=== PATIENT | male | born 1990 | race Caucasian/White ===

== ENCOUNTER → 2019-04-15 | Outpatient (CLI) | payer BC ==
--- NOTE | 2019-04-15 20:41 | CONS ---
CONSULTATION DATE OF SERVICE: 04/15/2019 28-year-old gentleman who has been evaluated in the sleep center for possible obstructive sleep apnea-hypopnea syndrome. HISTORY OF PRESENT ILLNESS/SLEEP WAKE EVALUATION: Patient usual sleep schedule from 11 or 12 midnight until 7 or 8:00 am, 7 days a week. Sometimes he has problem with falling asleep. He has TV set in bedroom. He sleeps in different positions, including back, side and stomach. According to his , he has extremely loud snoring with witnessed episodes of stopped breathing during the sleep. The patient wakes up from sleep with dry mouth up to 15 times. In the morning, he wakes up tired, feels sleepiness during the day. [place] Sleepiness Scale significantly increased to 10. During the night, patient may have twitching of his legs. PAST MEDICAL HISTORY: Basically negative. SOCIAL HISTORY: Negative for smoking. Alcohol consumption occasional. MEDICATIONS: None at the present time. 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 FAMILY HISTORY: Hypertension, heart problems, thyroid problems, restless legs. REVIEW OF SYSTEMS: Multiple awakenings from sleep, loud snoring, witnessed episodes of stopped breathing, sleepiness during the day. PHYSICAL EXAM: gentleman without distress. BP 136/85, HR 84, RR 16, height 5 feet 11 inches, weight 205 pounds. Body mass index 28.5, temperature 98.2, oxygen saturation at room air 96%. Oropharynx practically normal position of soft palate vertically, Mallampati 2 but horizontally very close position of soft palate and posterior pharyngeal wall. Neck Supple, no JVD. Thyroid is not palpable. LUNGS Clear to percussion and to auscultation. Good air exchange. No wheezing or rhonchi. HEART S1, S2 regular. No murmurs, gallops, or rubs. ABDOMEN Soft and nontender. Bowel sounds are present. No organomegaly appreciated. EXTREMITIES No clubbing or cyanosis. MARKETING AREA MANAGER Awake, alert, and oriented X3. Cranial nerves 2 to 7 intact. There is no fasciculation or atrophy. noted. No focal deficits observed. IMPRESSION: 1. Loud snoring, witnessed episodes of stopped breathing during the sleep multiple awakenings from sleep sleepiness, obstructive sleep apnea-hypopnea syndrome. 2. Status post tonsillectomy and adenoidectomy in childhood, also for snoring and possible sleep apnea at that time. 3. Twitching legs during the night. Possible periodic limb movements. PLAN: 1. Home sleep apnea test for evaluation of patient breathing during the sleep. 1. CPAP/BiPAP titration if sleep study confirms obstructive sleep apnea-hypopnea syndrome. 2. Preferable position during sleep on the side. 3. No driving if patient feels any sleepiness. 4. I will see patient for follow up visit to explain results of testing and following plan. Thank you for allowing me to participate in the care of your patient. Sincerely, Carl Roman MD, PhD, FAASM Diplomat of [employer] [employer] Agency Recruiter of [facility] [place] MMODL / IJN: [id number] /
== END | disposition home or self-care (01) ==
LOC: SLEEP 15:01
PROVIDERS: ATTEND Internal Medicine
DX: G47.33 Obstructive sleep apnea (adult) (pediatric) (principal); R25.3 Fasciculation; Z90.09 Acquired absence of other part of head and neck
CPT/HCPCS: 99211

== ENCOUNTER → 2020-08-11 | Outpatient (CLI) | payer BC ==
--- NOTE | 2020-08-11 20:53 | SFUN ---
SLEEP CENTER FOLLOW UP NOTE DATE OF SERVICE: 08/11/2020 This 30-year-old gentleman has been followed in the sleep enter for treatment of obstructive sleep apnea-hypopnea syndrome. In March of 2019 he had a home sleep apnea test which showed that he has obstructive sleep apnea in mild range. The patient was started on treatment with CPAP but was not able to use the equipment for different reasons, and the CPAP equipment has been returned. At present he again has problems related to sleep apnea, including snoring, multiple awakenings from sleep, episodes of stopped breathing. [place] Sleepiness Scale today is 4. He does not take any medications. PHYSICAL EXAMINATION: GENERAL: A pleasant patient in no distress. VITAL SIGNS: BP 105/71, HR 88, RR 15, height 5 feet 11 inches, weight 214, BMI 29.8, temperature 98.4, oxygen saturation at room air 96%. HEENT: PERRLA, EOMI. Evaluation of oropharynx showed tongue protrudes midline. Close position of soft palate to posterior pharyngeal wall, but vertically position of soft palate is Mallampati II. NECK: Supple. No JVD. Thyroid is not palpable. LUNGS: Clear to percussion and to auscultation. Good air exchange. No wheezing or rhonchi. HEART: S1, S2 regular. No murmurs, gallops or rubs. ABDOMEN: Soft, nontender. No organomegaly. Bowel sounds are heard in all four quadrants. EXTREMITIES: No clubbing or cyanosis. CHEMICAL PLANT TECHNICAL DIRECTOR: Awake, alert, and oriented X3. Cranial nerves 2 to 7 intact. There is no fasciculation or atrophy. noted. No focal deficits observed. IMPRESSION: 1. Loud snoring, witnessed episodes of stopped breathing during sleep, multiple awakenings from sleep, positive results of home sleep apnea test for obstructive sleep apnea in mild range more than one year ago. 2. Status post tonsillectomy and adenoidectomy in childhood. 3. History of twitching legs during the night; possibly periodic limb movements. 4. Decision made to repeat home sleep apnea test. PLAN: 1. Home sleep apnea test for re-evaluation of patient's breathing during sleep at the present time. 2. Sleep hygiene with regular time in bed for at least 7-1/2 hours. 3. Precautions related to driving. No driving if feeling any sleepiness. 4. Following plan after reviewing the results of home sleep apnea test. Thank you very much for allowing me to participate in the management of your patient. Sincerely, Carl Roman MD, PhD, FAASM Diplomat of [employer] Gold Frame Assembler of [facility] [place] SID / CAITLIN: [id number] /
== END | disposition home or self-care (01) ==
LOC: SLEEP 15:43
PROVIDERS: ATTEND Internal Medicine
DX: G47.33 Obstructive sleep apnea (adult) (pediatric) (principal); Z87.39 Personal history of other diseases of the musculoskeletal system and connective tissue

== ENCOUNTER → 2020-09-28 | Outpatient (CLI) | payer BC ==
--- NOTE | 2020-09-28 20:57 | SFUN ---
SLEEP CENTER FOLLOW UP NOTE DATE OF SERVICE: 09/28/2020 This is a 30-year-old gentleman who has been followed in Sleep Center for treatment of obstructive sleep apnea-hypopnea syndrome. Today is his first visit after he was started on treatment with AutoPAP. With the CPAP, the patient does not snore anymore, but he has difficulties with usage of the machine because it is difficult for him to exhale. [place] Sleepiness Scale today is 9. I checked his CPAP unit. It is on automatic regimen. Range of the pressure is from 5 to 15, average pressure 10.2. Usage is 26/28 days, but only 7/28 days for more than 4 hours' usage. Average usage 2.9 hours per night. Leak is 7 L/minute, which is normal. Apnea-hypopnea index is 2.1, which is normal. MEDICATIONS: None. PHYSICAL EXAMINATION: GENERAL: A pleasant patient in no distress. VITAL SIGNS: BP 115/77, HR 76, RR 15, weight 215, temperature 98.4, oxygen saturation at room air 96%. HEENT: PERRLA, EOMI. Evaluation of oropharynx showed tongue protrudes midline. NECK: Supple. No JVD. Thyroid is not palpable. LUNGS: Clear to percussion and to auscultation. Good air exchange. No wheezing or rhonchi. HEART: S1, S2 regular. No murmurs, gallops or rubs. ABDOMEN: Soft. No tenderness. EXTREMITIES: No clubbing or cyanosis. IS/IT PROJECT MANAGER: Awake, alert, and oriented X3. Cranial nerves 2 to 7 intact. There is no fasciculation or atrophy. noted. No focal deficits observed. IMPRESSION: 1. Obstructive sleep apnea-hypopnea syndrome. The patient has difficulties with exhalation on CPAP unit. No snoring with the machine. The patient still has symptoms of sleepiness. 2. Status post tonsillectomy and adenoidectomy. 3. History of possible periodic limb movements. 4. Overweight; borderline to obesity. PLAN: 1. I changed the regimen of his CPAP unit. I decreased maximal pressure to 9. I increased flex to 3. I changed RAMP to 15 minutes. 2. Patient will continue to use PAP equipment every night for the whole night. 3. Sleep hygiene with regular time in bed for at least 7-1/2 to 8 hours. 4. Precautions related to driving. No driving if feeling sleepiness. 5. I will maintain all necessary prescription for PAP supplies including mask, tube, filters. 6. Watching weight. 7. Follow-up visit in 6 months or earlier if patient has any problems. Thank you very much for allowing me to participate in the management of your patient. Sincerely, Carl Roman MD, PhD, FAASM Diplomat of [employer] Research And Development Researcher of [facility] [place] MMODL / BATSHEVAN: [id number] /
== END | disposition home or self-care (01) ==
LOC: SLEEP 15:44
PROVIDERS: ATTEND Internal Medicine
DX: G47.33 Obstructive sleep apnea (adult) (pediatric) (principal); G47.61 Periodic limb movement disorder; E66.9 Obesity, unspecified; Z90.09 Acquired absence of other part of head and neck; Z98.890 Other specified postprocedural states; Z99.89 Dependence on other enabling machines and devices